=== PATIENT | male | born 1990 | race African-American/Black ===

== ENCOUNTER 2018-04-20 17:35 | Inpatient (IN) | payer MEDICAID ==
[~2018-04-20] VITALS: Ht 177.8 cm; Wt 56.3 kg
[2018-04-20] MEDS ORDERED: FAMOTIDINE 20MG/2ML VIAL IV STA (18:36)
[2018-04-20] MEDS ORDERED: SODIUM CHLORIDE 0.9% 1,000 ML IV ONE (18:36)
[2018-04-20] MEDS ORDERED: ONDANSETRON HCL 4MG/2ML INJ IV STA (18:36)
[2018-04-20] MEDS ORDERED: MORPHINE SULFATE 2 MG/ML CPJ (NOT FOR IM USE) IV ONE (18:45)
[2018-04-20 19:07] LABS: BASOPHILS % 0.5 % (0.0-2.0); EOSINOPHILS % 0.6 % (0.0-5.0); HEMATOCRIT. 37.4 % (42.0-52.0); HEMOGLOBIN. 12.2 g/dL (14.0-18.0); LYMPHOCYTES % 35.2 % (20.0-50.0); MEAN CORPUSCULAR HEMOGLOBIN 29.3 pg (28.0-32.0); MEAN CORPUSCULAR VOLUME 89.5 fL (80.0-94.0); MEAN PLATELET VOLUME 10.3 fl (7.4-10.4); NEUTROPHILS % 57.7 % (40.0-76.0); PLATELET 103 x1000/uL (130-400); RED BLOOD CELL COUNT 4.17 mill/uL (4.7-6.1); RED CELL DISTRIBUTION WIDTH 18.8 % (11.6-14.6)
[2018-04-20 19:09] LABS: CHLORIDE 110 mEq/L (98-107)
[2018-04-20 19:17] LABS: ETHANOL BLOOD < 10 mg/dL; INR 1.3; PROTHROMBIN TIME 12.6 sec (9.1-11.1)
[2018-04-20] MEDS ORDERED: KCL 20MEQ/100ML PREMIX 100 ML IV ONE (19:45)
[2018-04-20] MEDS ORDERED: MORPHINE SULFATE 4 MG/ML CPJ (NOT FOR IM USE) IV NR (21:30)
[2018-04-20] MEDS ORDERED: DEXT 5%/0.45% NACL 1000ML 1,000 ML IV SCH (23:04)
[2018-04-20] MEDS ORDERED: LORAZEPAM 2MG/ML CPJ IV PRN (23:15)
[2018-04-20] MEDS ORDERED: CLONIDINE 0.1MG TABLET PO PRN (23:15)
[2018-04-20] MEDS ORDERED: MAGNESIUM 2 G PREMIX 50 ML IV NR (23:45)
[2018-04-20 23:59] LABS: CLARITY URINE CLEAR (CLEAR); COLOR URINE YELLOW (YELLOW); KETONES URINE NEGATIVE (NEGATIVE); LEUKOCYTE ESTERASE URINE NEGATIVE (NEGATIVE); NITRITE URINE NEGATIVE (NEGATIVE); OCCULT BLOOD URINE NEGATIVE (NEGATIVE); PH URINE 6.5 (4.5-8.0); PROTEIN URINE TRACE (NEGATIVE); SPECIFIC GRAVITY URINE 1.014 (1.005-1.030); UROBILINOGEN URINE 0.2 E.U./dL (0.2-1.0)
[2018-04-21 00:21] LABS: *BARBITURATES SCREEN URINE NEGATIVE (NEGATIVE)
[2018-04-21 00:22] LABS: *AMPHETAMINES SCREEN URINE NEGATIVE (NEGATIVE); *BENZODIAZEPINES SCREEN URINE NEGATIVE (NEGATIVE); *COCAINE SCREEN URINE NEGATIVE (NEGATIVE); METHADONE URINE SCREEN NEGATIVE (NEGATIVE); OPIATES URINE SCREEN PRESUMTIVE POSITIVE (NEGATIVE); PHENCYCLIDINE URINE SCREEN NEGATIVE (NEGATIVE)
[2018-04-21 00:23] LABS: CANNABINOID URINE SCREEN PRESUMTIVE POSITIVE (NEGATIVE)
[2018-04-21] MEDS ORDERED: NOREPINEPHRINE 4 MG in DEXT 5% WATER 246 ML IV PRN (02:15)
[2018-04-21] MEDS: POTASSIUM CHLORIDE 20MEQ TABLET SR PO SCH ×2 (02:31→17:00)
[2018-04-21] MEDS: SODIUM CHLORIDE 0.9% 1,000 ML IV SCH ×2 (02:32→21:30)
[2018-04-21 06:23] LABS: BASOPHILS % 0.4 % (0.0-2.0); HEMATOCRIT. 34.5 % (42.0-52.0); HEMOGLOBIN. 11.2 g/dL (14.0-18.0); LYMPHOCYTES % 44.7 % (20.0-50.0); MEAN CORPUSCULAR HEMOGLOBIN 29.8 pg (28.0-32.0); MEAN CORPUSCULAR VOLUME 91.2 fL (80.0-94.0); MEAN PLATELET VOLUME 10.4 fl (7.4-10.4); MONOCYTES % 7.7 % (2.0-8.0); NEUTROPHILS % 46.2 % (40.0-76.0); PLATELET 85 x1000/uL (130-400); RED BLOOD CELL COUNT 3.78 mill/uL (4.7-6.1)
[2018-04-21 06:32] LABS: CHLORIDE 119 mEq/L (98-107)
[2018-04-21 06:39] LABS: PHOSPHORUS 1.9 mg/dL (2.5-4.9)
[2018-04-21] MEDS ORDERED: ENOXAPARIN 40MG/0.4ML SYR SUBCUT SCH (09:00)
[2018-04-21] MEDS: ONDANSETRON HCL 4MG/2ML INJ IV PRN ×2 (14:15→19:39)
[2018-04-21 21:15] VITALS: BP 90/50
[2018-04-21] MEDS: MORPHINE SULFATE 4 MG/ML CPJ (NOT FOR IM USE) IV PRN (22:18)
[2018-04-22] VITALS (7 sets, daily range): BP systolic 104–110; BP diastolic 50–60
[2018-04-22] MEDS: PANTOPRAZOLE SODIUM 40 MG/VIAL IV SCH ×2 (00:56→21:43)
[2018-04-22] MEDS ORDERED: POTASSIUM CHLORIDE INJ 40 MEQ in DEXT 5% WATER 250 ML IV NR (02:00)
[2018-04-22] MEDS: MORPHINE SULFATE 4 MG/ML CPJ (NOT FOR IM USE) IV PRN ×5 (02:19→23:50)
[2018-04-22] MEDS: SODIUM CHLORIDE 0.9% 1,000 ML IV SCH ×3 (04:24→23:51)
[2018-04-22 07:45] LABS: BASOPHILS % 0.6 % (0.0-2.0); EOSINOPHILS % 1.1 % (0.0-5.0); HEMATOCRIT. 33.7 % (42.0-52.0); MEAN CORPUSCULAR HEMOGLOBIN 29.5 pg (28.0-32.0); MEAN CORPUSCULAR VOLUME 90.2 fL (80.0-94.0); MEAN PLATELET VOLUME 10.3 fl (7.4-10.4); MONOCYTES % 6.8 % (2.0-8.0); NEUTROPHILS % 59.5 % (40.0-76.0); PLATELET 88 x1000/uL (130-400); RED BLOOD CELL COUNT 3.74 mill/uL (4.7-6.1); RED CELL DISTRIBUTION WIDTH 18.4 % (11.6-14.6)
[2018-04-22] MEDS: ONDANSETRON HCL 4MG/2ML INJ IV PRN (08:38)
[2018-04-22] MEDS: POTASSIUM CHLORIDE 20MEQ TABLET SR PO SCH ×3 (08:39→16:05)
[2018-04-22] MEDS ORDERED: POTASSIUM PHOS,M-BASIC-D-BASIC 20 MMOL in DEXT 5% WATER 243.3333 ML IV SCH (10:00)
[2018-04-22] MEDS ORDERED: BISACODYL 5MG TABLET PO NR (10:15)
[2018-04-22 13:03] LABS: CHLORIDE 115 mEq/L (98-107)
[2018-04-23 03:49] VITALS: BP 110/58
[2018-04-23] MEDS: MORPHINE SULFATE 4 MG/ML CPJ (NOT FOR IM USE) IV PRN ×5 (04:00→20:59)
[2018-04-23 06:53] LABS: BASOPHILS % 0.5 % (0.0-2.0); HEMATOCRIT. 34.7 % (42.0-52.0); HEMOGLOBIN. 11.4 g/dL (14.0-18.0); LYMPHOCYTES % 33.1 % (20.0-50.0); MEAN CORPUSCULAR HEMOGLOBIN 29.8 pg (28.0-32.0); MEAN PLATELET VOLUME 10.2 fl (7.4-10.4); MONOCYTES % 6.6 % (2.0-8.0); NEUTROPHILS % 58.8 % (40.0-76.0); PLATELET 82 x1000/uL (130-400); RED BLOOD CELL COUNT 3.81 mill/uL (4.7-6.1); RED CELL DISTRIBUTION WIDTH 18.3 % (11.6-14.6)
[2018-04-23 07:08] LABS: CHLORIDE 115 mEq/L (98-107)
[2018-04-23 07:16] LABS: PHOSPHORUS 1.8 mg/dL (2.5-4.9)
[2018-04-23 08:19] VITALS: BP 116/57
[2018-04-23] MEDS: POTASSIUM CHLORIDE 20MEQ TABLET SR PO SCH ×2 (08:37→17:00)
[2018-04-23] MEDS: SODIUM CHLORIDE 0.9% 1,000 ML IV SCH ×3 (08:42→17:01)
[2018-04-23 12:00] VITALS: BP 118/63
[2018-04-23 16:00] VITALS: BP 120/64
[2018-04-23 20:00] VITALS: BP 121/65
[2018-04-23] MEDS ORDERED: MAGNESIUM 2 G PREMIX 50 ML IV NR (20:00)
[2018-04-23] MEDS: PANTOPRAZOLE SODIUM 40 MG/VIAL IV SCH (20:58)
[2018-04-24] VITALS (7 sets, daily range): BP systolic 102–144; BP diastolic 45–75
[2018-04-24] MEDS: MORPHINE SULFATE 4 MG/ML CPJ (NOT FOR IM USE) IV PRN ×6 (01:05→21:52)
[2018-04-24] MEDS: ACETAMINOPHEN 325MG TABLET PO PRN (07:55)
[2018-04-24] MEDS: POTASSIUM CHLORIDE 20MEQ TABLET SR PO SCH ×2 (09:18→17:46)
[2018-04-24] MEDS: THIAMINE HCL 100MG TABLET PO SCH ×2 (13:25→17:46)
[2018-04-24] MEDS: MULTIVITAMINS,THER W-MINERALS TABLET PO SCH (13:25)
[2018-04-24] MEDS: ONDANSETRON HCL 4MG/2ML INJ IV PRN ×2 (17:46→17:52)
[2018-04-24] MEDS: PANTOPRAZOLE SODIUM 40 MG/VIAL IV SCH (21:51)
[2018-04-25 00:05] VITALS: BP 113/64
[2018-04-25] MEDS: MORPHINE SULFATE 4 MG/ML CPJ (NOT FOR IM USE) IV PRN ×4 (01:54→14:05)
[2018-04-25 04:15] VITALS: BP 125/70
[2018-04-25 07:06] LABS: CHLORIDE 112 mEq/L (98-107)
[2018-04-25 07:21] LABS: BASOPHILS % 0.3 % (0.0-2.0); HEMATOCRIT. 32.7 % (42.0-52.0); HEMOGLOBIN. 10.8 g/dL (14.0-18.0); LYMPHOCYTES % 39.5 % (20.0-50.0); MEAN CORPUSCULAR HEMOGLOBIN 30.2 pg (28.0-32.0); MEAN CORPUSCULAR VOLUME 91.2 fL (80.0-94.0); MEAN PLATELET VOLUME 11.2 fl (7.4-10.4); MONOCYTES % 8.3 % (2.0-8.0); NEUTROPHILS % 50.9 % (40.0-76.0); PLATELET 71 x1000/uL (130-400); RED BLOOD CELL COUNT 3.58 mill/uL (4.7-6.1); RED CELL DISTRIBUTION WIDTH 17.6 % (11.6-14.6)
[2018-04-25 08:00] VITALS: BP 109/59
[2018-04-25] MEDS: POTASSIUM CHLORIDE 20MEQ TABLET SR PO SCH (09:00)
[2018-04-25] MEDS: MULTIVITAMINS,THER W-MINERALS TABLET PO SCH (09:57)
[2018-04-25] MEDS: THIAMINE HCL 100MG TABLET PO SCH (09:57)
[2018-04-25 12:00] VITALS: BP 125/66
[2018-04-25] MEDS: ACETAMINOPHEN 325MG TABLET PO PRN (12:50)
[2018-04-25 15:04] VITALS: BP 125/66
== END 2018-04-25 16:30 | disposition home or self-care (01) | DRG 254 ==
LOC: ER 17:35 → 8WST 21:29 → EDBEDREQ 21:35 → ENRESERV 04-21 19:51
PROVIDERS: ADMIT Internal Medicine Nephrology; ATTEND Internal Medicine Nephrology
DX: K91.2 Postsurgical malabsorption, not elsewhere classified (principal); D69.6 Thrombocytopenia, unspecified; E87.8 Other disorders of electrolyte and fluid balance, not elsewhere classified; E44.0 Moderate protein-calorie malnutrition; E83.42 Hypomagnesemia; E83.39 Other disorders of phosphorus metabolism; Z59.0 Homelessness; Y83.8 Other surgical procedures as the cause of abnormal reaction of the patient, or of later complication, without mention of misadventure at the time of the procedure; E87.6 Hypokalemia; D63.8 Anemia in other chronic diseases classified elsewhere; R62.7 Adult failure to thrive; Z68.1 Body mass index [BMI] 19.9 or less, adult; Z90.49 Acquired absence of other specified parts of digestive tract; Y92.89 Other specified places as the place of occurrence of the external cause
CPT/HCPCS: 36415; 71045; 74018; 74176; 80048; 80305; 83605; 83735; 84100; 84484; 93005; 96365; 96375; 97162; 99284; 99285; C9113; G0482; J2060; J2270; J2405; J3475; J3480; J3490; J7030; J7040; J7060